=== PATIENT | female | born 1970 | race Hispanic/Latino ===

== ENCOUNTER → 2018-03-18 | Outpatient (CLI) | payer BC | END | disposition home or self-care (01) | LOC: RAH 10:55 | PROVIDERS: ATTEND Obstetrics & Gynecology | DX: Z12.31 Encounter for screening mammogram for malignant neoplasm of breast (principal) | CPT/HCPCS: 77067 ==

== ENCOUNTER → 2019-03-24 | Outpatient (CLI) | payer BC | END | disposition home or self-care (01) | LOC: RAH 09:17 | PROVIDERS: ATTEND Obstetrics & Gynecology | DX: Z12.31 Encounter for screening mammogram for malignant neoplasm of breast (principal) | CPT/HCPCS: 77067 ==

== ENCOUNTER → 2019-05-26 | Outpatient (CLI) | payer BC | END | disposition home or self-care (01) | LOC: RAH 08:23 | PROVIDERS: ATTEND Internal Medicine Gastroenterology | DX: R10.13 Epigastric pain (principal) | CPT/HCPCS: 76700 ==

== ENCOUNTER → 2020-04-12 | Outpatient (CLI) | payer BC | END | disposition home or self-care (01) | LOC: RAH 14:29 | PROVIDERS: ATTEND Obstetrics & Gynecology | DX: Z12.31 Encounter for screening mammogram for malignant neoplasm of breast (principal) | CPT/HCPCS: 77067 ==

== ENCOUNTER → 2023-05-23 | Outpatient (CLI) | payer BC | END | disposition home or self-care (01) | LOC: RAH 15:48 | PROVIDERS: ATTEND Obstetrics & Gynecology | DX: Z12.31 Encounter for screening mammogram for malignant neoplasm of breast (principal); R92.333 Mammographic heterogeneous density, bilateral breasts | CPT/HCPCS: 77067 ==

== ENCOUNTER → 2024-05-29 | Outpatient (CLI) | payer BC ==
--- NOTE | 2024-05-29 16:42 | HMCIMG ---
DEXA BONE DENSITY SURVEY REASON: ASYMPTOMATIC MENOPAUSAL STATE COMPARISON: None TECHNIQUE: DEXA bone densitometry was performed in the lumbar spine and left hip. FINDINGS: Mean bone mass density in the spine is 0.869 g present with square, T score -1.6, consistent with osteopenia. Femoral neck T score is -1.9 also corresponding with osteopenia. IMPRESSION: 1. Osteopenia which is consistent with a moderate fracture risk.
--- NOTE | 2024-05-30 09:24 | HMCIMG ---
SCREENING MAMMOGRAM REASON: Annual Exam COMPARISON: 05/23/2023 TECHNIQUE: CC and MLO views of the bilateral breasts were performed.CAD was performed as well. FINDINGS: Parenchymal density: The breasts are heterogeneously dense, which may obscure small masses. There are no focal mass lesions. There are no pathologic appearing calcifications. There is no evidence of architectural distortion or skin thickening. IMPRESSION: Normal screening mammogram The patient was entered into a reminder system with a target due date for their next mammogram. BI-RADS CATEGORY 1: NEGATIVE Recommend monthly self breast exam as well as annual clinical examination. A negative x-ray should not delay biopsy if a dominant or clinically suspicious mass is present, since 8-10% of cancers are not identified by mammography. Dense breasts particularly, may obscure an underlying neoplasm. Some of these may be detected clinically and therefore, clinical examination is an essential part of breast evaluation.
== END | disposition home or self-care (01) ==
LOC: RAH 14:47
PROVIDERS: ATTEND Internal Medicine
DX: Z12.31 Encounter for screening mammogram for malignant neoplasm of breast (principal); R92.333 Mammographic heterogeneous density, bilateral breasts; M85.89 Other specified disorders of bone density and structure, multiple sites; Z78.0 Asymptomatic menopausal state
CPT/HCPCS: 77067; 77080